=== PATIENT | male | born 1970 | race Two or more races ===

== ENCOUNTER 2023-10-26 08:40 | Emergency (ER) | payer OTHER ==
[~2023-10-26] VITALS: Ht 177.8 cm; Wt 76.5 kg
[2023-10-26 09:45] VITALS: BP 149/84; PULSE 68; RESP 16; TEMP 98; O2SAT 98
[2023-10-26] MEDS ORDERED: FAMO20TA10 PO (10:12)
[2023-10-26] MEDS ORDERED: HYDR-4924 PO (10:12)
[2023-10-26] MEDS ORDERED: PRED20TA2 PO (10:12)
== END 2023-10-26 10:18 | disposition home or self-care (01) ==
LOC: ER 08:40
DX: T78.40XA Allergy, unspecified, initial encounter (principal); X58.XXXA Exposure to other specified factors, initial encounter

== ENCOUNTER 2023-11-08 12:07 | Emergency (ER) | payer OTHER ==
[~2023-11-08] VITALS: Ht 177.8 cm; Wt 74.6 kg
[~2023-11-08 12:07] MED LIST: FAMO20TA10 PO; HYDR-4924 PO; PRED20TA2 PO
[2023-11-08 12:51] VITALS: BP 123/69; PULSE 67; RESP 16; TEMP 98.3; O2SAT 96
[2023-11-08] MEDS: EPINEPHrine HCL 1 MG/1 ML AMP SC ONE (13:25)
[2023-11-08] MEDS: methylPREDNISolone SOD SUCC 125 MG/2 ML VL IM ONE (13:25)
[2023-11-08] MEDS ORDERED: HYDR50TA69 PO (13:32)
[2023-11-08] MEDS ORDERED: PRED20TA2 PO (13:32)
== END 2023-11-08 13:52 | disposition home or self-care (01) ==
LOC: ER 12:07
DX: R21 Rash and other nonspecific skin eruption (principal); T78.40XD Allergy, unspecified, subsequent encounter; X58.XXXD Exposure to other specified factors, subsequent encounter
CPT/HCPCS: 96372; 99284; J0171; J2919

== ENCOUNTER 2024-01-23 13:48 | Emergency (ER) | payer OTHER ==
[~2024-01-23] VITALS: Ht 177.8 cm; Wt 78.7 kg
[~2024-01-23 13:48] MED LIST changes: +HYDR50TA69 PO
[2024-01-23 14:25] VITALS: BP 118/61; PULSE 59; RESP 18; TEMP 98.5; O2SAT 98
[2024-01-23] MEDS ORDERED: TOB03OS OP (14:30)
== END 2024-01-23 14:34 | disposition home or self-care (01) ==
LOC: ER 13:48
DX: H10.32 Unspecified acute conjunctivitis, left eye (principal); Z79.899 Other long term (current) drug therapy